=== PATIENT | female | born 1995 | race Caucasian/White ===

== ENCOUNTER 2021-10-28 06:57 | Outpatient (CLI) | payer BC, SELFPAY ==
--- NOTE | 2021-10-28 07:15 | CRLHL7_ITS ---
For Patients: As a result of the Century Cures Act, medical imaging exams and procedure reports are released immediately into your electronic medical record. You may view this report before your referring provider. If you have questions, please contact your health care provider. INDICATION: Chronic hypertension TECHNIQUE: Real time eldridge scale imaging of the fetus was performed. COMPARISON: 08/05/2021 FINDINGS: Sonographic imaging demonstrates a single living intrauterine gestation. Fetus demonstrates a regular cardiac rate of 159 beats per minute. Fetus has a vertex position. The placenta lies anteriorly. Amniotic fluid volume appears normal and there is a single deepest pocket of 4.1 cm. The estimated weight is 1764gm which lies at the 29th %. On the prior OB ultrasound dated 08/05/2021 the estimated weight was at the 86th percentile. BPD 52nd percentile. HC 48th percentile. Abdominal circumference 39th percentile. FL 15th percent. The fetus was active and demonstrated normal breathing movements. There was normal flexion and extension of the trunk and extremities. IMPRESSION: Normal biophysical profile score 8/8. Sonographic gestational age 31 weeks 6 days and sonographic due date 12/24/2021. Good correlation with dates. Normal interval growth. Estimated weight 29th percentile. Abdominal circumference 39th percentile. Dictated by Miguel Ángel Dockery MD @ 10/28/2021 8:50:49 AM (Electronically Signed)
== END 2021-10-28 06:58 | disposition home or self-care (01) ==
LOC: US 06:58
PROVIDERS: PCP Family Medicine; Visit Provider Physician Assistant
DX: O10.913 Unspecified pre-existing hypertension complicating pregnancy, third trimester (principal); Z3A.31 31 weeks gestation of pregnancy
CPT/HCPCS: 76816; 76819

== ENCOUNTER 2021-11-27 13:45 | Outpatient (CLI) | payer BC, SELFPAY ==
--- NOTE | 2021-11-27 14:00 | CRLHL7_ITS ---
For Patients: As a result of the Century Cures Act, medical imaging exams and procedure reports are released immediately into your electronic medical record. You may view this report before your referring provider. If you have questions, please contact your health care provider. INDICATION: chronic hypertension TECHNIQUE: Real time eldridge scale imaging of the fetus was performed. COMPARISON: 10/28/2021, 08/05/2021 FINDINGS: Sonographic imaging demonstrates a single living intrauterine gestation. Fetus demonstrates a regular cardiac rate of 155 beats per minute. Fetus has a vertex position. The placenta lies fundal. Amniotic fluid volume appears normal and there is a single deepest pocket of 4.6 cm. The estimated weight is 3009gm which lies at the 71st %. On the prior OB ultrasound dated 08/05/2021 the estimated weight was at the 86th percentile. BPD 56th percentile. HC 33rd percentile. AC 95th percentile. FL 13th percentile. The fetus was active and demonstrated normal breathing movements. There was normal flexion and extension of the trunk and extremities. IMPRESSION: Normal biophysical profile score 8/8. Sonographic gestational age 36 weeks 2 days and sonographic due date of 12/23/2021. Good correlation of dates. Normal interval growth. Estimated weight 71st percentile. Abdominal circumference 95th percentile. Dictated by Miguel Ángel Dockery MD @ 11/27/2021 3:08:01 PM (Electronically Signed)
== END 2021-11-27 13:46 | disposition home or self-care (01) ==
LOC: US 13:45
PROVIDERS: PCP Family Medicine; Visit Provider Physician Assistant
DX: O10.913 Unspecified pre-existing hypertension complicating pregnancy, third trimester (principal); Z3A.36 36 weeks gestation of pregnancy
CPT/HCPCS: 76816; 76819

== ENCOUNTER 2021-11-27 14:36 | Outpatient (CLI) | payer BC, SELFPAY ==
[2021-11-27 15:26] LABS: Alanine Aminotransferase* 26 U/L (4-35); Aspartate Amino Transferase* 25 U/L (12-35); Blood Urea Nitrogen* 5 mg/dL (5-24); Creatinine* 0.5 mg/dL (0.5-1.5); Estimated Glomerular Filt Rate 133 ml/min
[2021-11-27 17:48] LABS: Total Protein Urine 9 mg/dL
[2021-11-27 17:49] LABS: Creatinine Urine 61.1 mg/dL
[2021-11-28 14:25] LABS: Strep B DNA Probe NEGATIVE (Negative)
== END 2021-11-27 14:37 | disposition home or self-care (01) ==
PROVIDERS: PCP Family Medicine; Visit Provider Obstetrics & Gynecology
DX: O10.913 Unspecified pre-existing hypertension complicating pregnancy, third trimester (principal); Z3A.36 36 weeks gestation of pregnancy
CPT/HCPCS: 76816; 76819; 82565; 82570; 84156; 84450; 84460; 84520; 87081; 87653

== ENCOUNTER 2021-12-17 15:49 | Inpatient (IN) | payer BC, SELFPAY ==
[2021-12-17 16:07] VITALS: BP 136/92; PULSE 97
[2021-12-17 16:11] VITALS: BMI 44.6
[2021-12-17 16:34] VITALS: PULSE 98; O2SAT 100
[2021-12-17 16:42] LABS: Basophils Absolute Auto 0.02 K/uL (0.00-0.30); Basophils Percent Auto 0.2 % (0.0-3.0); Eosinophils Absolute Auto 0.14 K/uL (0.00-0.50); Eosinophils Percent Auto 1.6 % (0.0-7.0); Hematocrit 38.9 % (33.0-51.0); Hemoglobin* 12.9 gm/dL (12.0-16.0); Immature Granulocytes Abs Auto 0.03 K/uL (0.00-0.30); Lymphocytes Absolute Auto 1.89 K/uL (0.90-2.90); Lymphocytes Percent Auto 21.7 % (20-44); Mean Corpuscular HGB Conc 33 gm/dL (32-36); Mean Corpuscular Hemoglobin 28 pg (26-34); Mean Corpuscular Volume 84 fL (80-100); Monocytes Percent Auto 9.4 % (0.0-11.0); Neutrophils Absolute Auto 5.82 K/uL (1.7-7.0); Neutrophils Percent Auto 66.8 % (42.0-72.0); Platelet Count* 375 K/uL (140-440); RDW Coefficient of Variation % 13.4 % (11.5-15.5); Red Blood Count 4.65 m/uL (4.00-5.20); White Blood Count* 8.72 K/uL (4.50-11.00)
[2021-12-17] MEDS: miSOPROStoL 25 MCG/0.25 TABLET VAGINAL ×2 (17:00→20:55)
--- NOTE | 2021-12-17 17:01 | P.LDBA_ITS ---
Subjective History of Present Illness Date Seen: 12/17/21 Narrative: Patient is being admitted to Labor and Delivery for IOL for chronic HTN. She is a 26 year old at weeks gestation. Her full history and physical was dictated by Dr. Nuno on 11/27/2021. Please see this for details. H&P done on 11/27/[address] Nuno Specific Issues/Plans Blood type:?A positive Spouse: Jayjay. Baby: Girl. 1.? Obesity, BMI 44.4 at 1st OB Hemoglobin A1c:5.3 Normal 1 hr GTT @ 20 weeks on 08/05/2021: 116 1 hr GTT @ 28wks:? 134 Anesthesia referral: done Nutrition referral:? Placed on 07/10/2021? Level 2 ultrasound and consult with MFM 08/05/2021:? Normal ? note sent to outsole scheduler on 10/02/21 to arrange growth ultrasound with BPP at 32 and 36 weeks and Weekly NSTs 33, 34 and 35 weeks Weekly BPP or NST starting at 32 weeks: Growth ultrasound 32 weeks: EFW 86%, SDP 4.1 cm Growth ultrasound 36 weeks: EFW 3009g (71%), BPD 56%, HC 33%, AC 95%, FL 13%, SDP 4.6 cm 2.? 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 Beau Da Silva, had follow-up appointment 05/14/2021 (note is scanned in the chart) Plan for follow-up in 4-6 months and then 1 month Currently on mesalamine 10/02/2021:? Episodes of bloody diarrhea, seen thereafter by GI 3.? Chronic hypertension.? Diagnosed at 16 week visit. --Started on labetalol 100 mg twice daily --Baby ASA daily until 36 weeks.? Stopped 12/01/21. --Preeclampsia labs ordered: labs normal (BUN 9, Creat 0.9, AST 19, ALT 14)? 24 hour urine: Total protein in 24 hr = 260* Delivery between 37.0 - 39.6 if BP controlled w/ medication, per ACOG Cervical ripening 12/17/21, IOL 12/18/21 = 39 0/7 weeks. 4.? Flu shot:? 05/19/2021 COVID vaccinated, Moderna.? Due for booster:? Tdap:? 32 weeks.? 5.? Covid positive 11/16/21, symptomatic on 11/15/21. Quarantine for 10 days after onset of symptoms.? No lingering symptoms. OB - H&P: Exam Physical Exam: Vital signs: Pulse BP Pulse Ox 97 136/92 H 100 12/17/21 16:07 12/17/21 16:07 12/17/21 16:34 Constitutional: Constitutional: no acute distress Routine HEENT Exam: Head: Present normal inspection Eye: Present normal appearance Routine Neck Exam: Neck: Present full ROM Routine Respiratory Exam: Respiratory: Present CTA bilaterally Routine Cardiovascular Exam: Cardiovascular: RRR Routine Exam: Perineum Description: Normal Detailed Labor and Delivery Exam: Patient Gravid: yes Dilation (cm): 1 Effacement (%): 0 Cervix position: posterior (slightly off to the patinets left) Consistency: firm Contraction frequency (min): 0 (uterine irritability present. pt feeling only occasional cramping.) Tachysystole: No Contraction intensity: Mild Fetus (Single): Station: -3 Heart Rate Baseline: 145 Monitor Accelerations: Present Monitor Decelerations: None Longterm Variability: Moderate (11-25) (6-25) Routine Extremities Exam: Extremities: Present full ROM Routine Back/Spine/Pelvis Exam: Back/Spine: full ROM Routine Neurological Exam: Present alert and oriented X3 Routine Psychiatric Exam: Present normal affect and normal thought process OB - Problem Based A/P Additional Plan (1) Chronic hypertension affecting : Status: Acute (2) : Status: Acute Plan ASSESSMENT:? at 38.6 weeks gestation? GBS negative? complicated by chronic HTN. Well controlled with Labetalol and on 81mg ASA. Obesity with BMI 44.4 at [facility]. 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 History of covid 11/15/2021 without lingering symptoms. ? BP normal on admit? IOL for chronic HTN? ?? PLAN:? 1. Reviewed risks and benefits of IOL with Pitocin vs Cytotec vs cook catheter balloon. I do not feel that her cervix is favorable enough to allow a cook catheter placement. Pt prefers vaginal Cytotec. Plan to start IV Pitocin tomorrow after Cytotec doses if needed.?? 2. Candidate for analgesia of choice. Planning unmedicated .? 3. Monitor blood pressures. Consider labs if elevated.? 4. Anticipate ? 5. IV access in place at this time.? 6. Intermittent monitoring per unit Cytotec policy at this time as long s blood pressures remain in the normal range and there is a reassuring tracing.? Delivery/Labor/Induction Plan Plan: induction Induction method: per misoprostol protocol
[2021-12-17 17:22] LABS: SARS Antigen* negative (Negative)
[2021-12-17 17:59] VITALS: BP 133/83; PULSE 88
[2021-12-17 18:44] LABS: Slide Review Reflex No
[2021-12-17 20:49] VITALS: BP 146/84; PULSE 87; RESP 16; TEMP 37.1
[2021-12-17 22:15] VITALS: BP 127/81; PULSE 80
[2021-12-18] VITALS (78 sets, daily range): BP systolic 96–165; BP diastolic 52–89; PULSE 72–102; RESP 16–20; TEMP 36.3–37.1; O2SAT 96–100
[2021-12-18] MEDS: miSOPROStoL 25 MCG/0.25 TABLET VAGINAL (00:58)
[2021-12-18 05:15] LABS: Amnisure Rom* POSITIVE
[2021-12-18] MEDS: LACTATED RINGERS 1000 ML 1,000 ML IV (05:34)
[2021-12-18] MEDS: OXYTOCIN 30 unit/500 ML in NS 30 UNIT/500 ML BAG IVPB (07:00)
--- NOTE | 2021-12-18 07:25 | PM.OBPNL ---
Pain Control Time Seen by Provider: 07:25 Date Seen: 12/18/21 Comments: Subjective: Princess is comfortable with contractions. She states they have become mildly more intense since her water broke at 3:40 a.m. she has received 2 doses of vaginal Cytotec. Will be starting Pitocin per induction protocol. She was able to talk through all of her contractions well I was in the room. Vital signs: Per electronic medical record. EFM: Baseline 140s, pots accelerations, 1 spontaneous late-appearing deceleration at 7:25 a.m., moderate variability, reactive. Category to. [place]: Contractions every 3-4 minutes. SVE: 3 cm/70%/-1. Assessment: 26-year-old 1 para 0 at 39 weeks 0 days gestation induction of labor for chronic hypertension in Plan: 1. Start Pitocin per induction protocol.. 2. Continue labetalol 100 mg p.o. b.i.d. 3. Expect vaginal delivery. 4. Considering epidural and/or nitrous for analgesia during labor. Contractions Contraction frequency: 0 (uterine irritability present. pt feeling only occasional cramping.) Contraction intensity: Mild
[2021-12-18] MEDS: LABETALOL HCL 100 MG TABLET PO ×2 (08:27→20:56)
[2021-12-18] MEDS: LACTATED RINGERS 1000 ML 1,000 ML 125 ML IV (09:32)
[2021-12-18] MEDS: LIDOCAINE 2% (PF) 5 ML VIAL EPIDURAL (10:31)
[2021-12-18] MEDS: ROPIVACAINE 0.2% 100 ml 100 ML 12 MG EPIDURAL (10:35)
--- NOTE | 2021-12-18 10:46 | PM.ANBPRC ---
[facility] Medical History (Updated 11/30/21 @ 14:31 by Gemma Ward MD) Acne Class 1 obesity Ulcerative colitis Surgical History (Updated 11/30/21 @ 14:31 by Gemma Ward MD) H/O wisdom tooth extraction History of third molar tooth extraction Family History Father Alcoholism Maternal Grandfather Prostate cancer Mother Ulcerative colitis Social History (Updated 11/30/21 @ 14:32 by Gemma Ward MD) Narrative: Lives in [place] with . Works in [employer], [employer] Exercise involving walking (2/week, also 10,000 steps daily at work) Non-smoker Rarely consumes alcohol, none in No ilicit drug use Smoking Status: Never smoker Are you now , , , , never or living with a partner: Social isolation score (0-1 are the most socially isolated patients): 1 Meds Home Medications and Allergies Home Medications Medication Instructions Recorded Confirmed Type prenat.vits,scotty,zuz-ayin-ybdlc 1 tab PO QDAY 10/28/21 12/17/21 History mesalamine 1.2 gram tablet,delayed 4.8 g PO Q24H 12/18/21 12/18/21 History release Allergies Allergy/AdvReac Type Severity Reaction Status Date / Time No Known Allergies Allergy Verified 12/17/21 19:18 Results Labs Labs: Laboratory Results - last 24 hr 12/17/21 12/17/21 12/17/21 16:25 16:30 16:30 WBC 8.72 RBC 4.65 Hgb 12.9 Hct 38.9 MCV 84 MCH 28 MCHC 33 RDW Coeff of Mirna 13.4 Plt Count 375 Neut % (Auto) 66.8 Lymph % (Auto) 21.7 [place] % (Auto) 9.4 Eos % (Auto) 1.6 Baso % (Auto) 0.2 Neut # (Auto) 5.82 Lymph # (Auto) 1.89 [place] # (Auto) 0.80 Eos # (Auto) 0.14 Baso # (Auto) 0.02 Abs Immat Gran (auto) 0.03 Membrane Rupture SARS-CoV-2 (PCR) Cancelled SARS-CoV-2 Ag (Rapid) negative Blood Type A Positive Antibody Screen NEGATIVE 12/18/21 05:00 WBC RBC Hgb Hct MCV MCH MCHC RDW Coeff of Mirna Plt Count Neut % (Auto) Lymph % (Auto) [place] % (Auto) Eos % (Auto) Baso % (Auto) Neut # (Auto) Lymph # (Auto) [place] # (Auto) Eos # (Auto) Baso # (Auto) Abs Immat Gran (auto) Membrane Rupture POSITIVE SARS-CoV-2 (PCR) SARS-CoV-2 Ag (Rapid) Blood Type Antibody Screen Vital Signs Vital Signs: Last Vital Signs Temp 98.5 F 12/18/21 09:46 Pulse 81 12/18/21 10:45 Resp 20 12/18/21 09:46 BP 127/70 12/18/21 10:45 Pulse Ox 98 12/18/21 10:44 Weight: 129.501 kg Height: 170.18 cm Anesthesia Procedures Epidural Insertion Patient Location: OB Start Time: 10:16 Stop Time: 11:16 Start Date: 12/18/21 Stop Date: 12/18/21 Reason for Block: procedure for pain Patient Position: sitting Performed By: Leah Oliver Preanesthetic Checklist: IV checked, site marked, risks and benefits discussed, monitors and equipment checked, pre-op evaluation, timeout performed and anesthesia consent Prep: chlorhexidine gluconate Monitoring: blood pressure monitoring, continuous pulse oximetry and heart rate Approach: midline Vertebral Space: lumbar (1-5) Epidural Technique: STARLA saline Needle Type: Tuohy needle Injection Technique: continuous catheter Needle gauge: 18 Needle Length (cm): 10 cm Needle Insertion Depth (cm): 7 Catheter Type: multi-orifice Catheter at skin depth (cm): 14 Test Dose Result: negative and lidocaine 1.5% with epinephrine 1 to 200,000
[2021-12-18] MEDS: PHENYLEPHRINE 100 MCG/ML SYRINGE IVP (10:57)
--- NOTE | 2021-12-18 11:43 | PM.OBPNL ---
Pain Control Time Seen by Provider: 11:30 Date Seen: 12/18/21 Pain control: epidural Comments: Just received epidural. I was then called to the room for concern of decelerations. Contractions Monitor mode: External Contraction frequency: 1 (uterine irritability present. pt feeling only occasional cramping.) Contraction pattern: Regular Pelvic Exam Dilation (cm): 4 Effacement (%): 90 Station: -1 Fetus (Single) Amniotic Membrane Status: SROM status: Category ll Comments: Currently baseline 135 / accels present / no decels / moderate variability. At just before 1130, several [id number] decels with nathan in 90s, recovering to 120 for a few seconds between each of the three decels. Followed by one variable a few minutes later, and two possible late decelerations (contractions not tracking at that time) Assessment and Plan Comments: woman for IOL for gestational HTN. BP stable. Currently category I tracing, but previously category 2 Latent labor. Begin pitocin for augmentation. IUPC and scalp electrode placed with aseptic technique to aid in monitoring; maternal position changes make monitoring impossible. Continuous monitoring.
--- NOTE | 2021-12-18 17:03 | PM.OBPRCVD ---
Procedure Delivery date: 12/18/21 Procedure Done: [employer] Procedure Details: The patient is a 26 year-old G 1 P 0 woman admitted on 12/17/2021 at 38 Weeks, 6 Days gestation for cervical ripening in anticipation of induction of labor.? Cervical exam on admission was 1 cm, not effaced,-3 station, posterior and firm. heart rate tracing revealed baseline of 145, accelerations present, no decelerations, moderate variability, a category [1] tracing.? She received 3 doses of vaginal misoprostol for cervical ripening. She then had SROM at 3:40 a.m. on 12/18/2021 with clear fluid. ? Labor Analgesia:? Epidural ? Pitocin:? Yes ? Complete:? 4:07 PM ? Pushing:? 4:12 p.m. ? heart tones during second stage were notable for recurrent deep variable decelerations with pushing. ? At 4:33 p.m. a viable female delivered in vertex CYRIL presentation over small second-degree perineal laceration via vaginal delivery.? After delivery of infant had, I was unable to deliver the anterior shoulder with gentle guidance of the head downward. Shoulder dystocia was diagnosed. Maneuvers taken to resolve dystocia: Toro maneuver, unsuccessful Delivery of posterior shoulder, successful. I was able to hook my finger beneath the posterior arm and guide this downwards, after which time the anterior shoulder was guided beneath the maternal pubic bone. Time from delivery of head to shoulder was approximately 90 seconds. Infant was placed on maternal abdomen.? Cord was immediately clamped and cut and infant was passed to attending nurses for resuscitation.? Nose and mouth were bulb suctioned.? weight pending.? 2 at 1 minute and 9 at 5 minutes.? Nuchal cord: Yes, loose, x1. ? Placenta delivered spontaneously and complete at 4:52 p.m. with a 3 vessel cord. ? Mother and were stable after delivery. ? Lacerations:? Second-degree perineal laceration, repaired with 2-0 Vicryl in the usual fashion. ? Blood loss: 325 mL. Blood loss measurement type: QBL ? Sponge and needles counts are correct.
[2021-12-18] MEDS: ACETAMINOPHEN 500 MG TABLET 1000 MG PO (20:56)
[2021-12-19] VITALS (8 sets, daily range): BP systolic 109–126; BP diastolic 77–85; PULSE 82–102; RESP 14–16; TEMP 36.6–37; O2SAT 96–98
[2021-12-19] MEDS: ACETAMINOPHEN 500 MG TABLET 1000 MG PO ×4 (02:51→21:05)
[2021-12-19 06:56] LABS: Hematocrit 36.4 % (33.0-51.0); Mean Corpuscular HGB Conc 33 gm/dL (32-36); Mean Corpuscular Hemoglobin 28 pg (26-34); Mean Corpuscular Volume 85 fL (80-100); Platelet Count* 305 K/uL (140-440); Red Blood Count 4.28 m/uL (4.00-5.20); White Blood Count* 14.53 K/uL (4.50-11.00)
[2021-12-19 07:07] LABS: Slide Review Reflex No
[2021-12-19 07:15] LABS: Alanine Aminotransferase* 26 U/L (4-35); Aspartate Amino Transferase* 35 U/L (12-35); Blood Urea Nitrogen* 6 mg/dL (5-24); Creatinine* 0.6 mg/dL (0.5-1.5); Est. Creatinine Clearance* 138.17; Estimated Glomerular Filt Rate 127 ml/min
[2021-12-19] MEDS: DOCUSATE SODIUM 100 MG CAPSULE PO (09:04)
[2021-12-19] MEDS: LABETALOL HCL 100 MG TABLET PO ×2 (09:06→21:05)
--- NOTE | 2021-12-19 10:03 | PM.OBPNVD1 ---
OB - PN:Subj Subjective Date Seen: 12/19/21 Patient comments OB post-: perineal pain, tolerating diet and flatus present [place] status: Narrative: PPD1 doing well. Normal hemoglobin in am. OB - PN: Obj Exam Physical Exam: Vital signs: Temp Pulse Resp BP Pulse Ox O2 Del Method 98.3 F 85 16 126/85 96 12/19/21 09:05 12/19/21 08:57 12/19/21 08:57 12/19/21 08:57 12/19/21 08:57 12/19/21 08:57 Narrative: General: AAOX3 Chest: CTA x2, RRR Abd: Uterus well contracted, non tender Pelvic: Normal pp lochia OB - PN: Obj Data Labs Labs: Laboratory Results - last 24 hr 12/19/21 12/19/21 06:47 06:47 WBC 14.53 H RBC 4.28 Hgb 12.0 Hct 36.4 MCV 85 MCH 28 MCHC 33 Plt Count 305 BUN 6 Creatinine 0.6 Estimated Creat Clear 138.17 Estimated GFR 127 AST 35 ALT 26 OB - PN: A/P Vaginal Delivery Assessment and Plan (1) Chronic hypertension affecting : Status: Acute (2) : Status: Deleted Plan Doing well PPD1. CHTN, had some episodes of low blood pressures, she is on labetalol 100 mg BID, will continue to monitor to assess if we need to d/c medication. Otherwise continue routine cares. Plan day: 1 Plan: routine care Comments: POssible discharge home tomorrow
[2021-12-20] MEDS: ACETAMINOPHEN 500 MG TABLET 1000 MG PO ×2 (02:55→09:25)
[2021-12-20 03:01] VITALS: BP 112/80; PULSE 88; RESP 14; TEMP 36.7; O2SAT 96
[2021-12-20 08:23] VITALS: BP 116/83; PULSE 80; RESP 16; TEMP 37.1; O2SAT 98
[2021-12-20] MEDS: DOCUSATE SODIUM 100 MG CAPSULE PO ×2 (08:37→08:39)
[2021-12-20] MEDS: LABETALOL HCL 100 MG TABLET PO (08:39)
--- NOTE | 2021-12-20 11:11 | PM.OBDSVD1 ---
DS: Providers Provider Date Seen: 12/20/21 Date of admission: 12/17/21 15:49 Primary care physician: Bernard Ashton MD Admitting Clinician: Carol Cuellar MD Attending Physician on discharge: Carol Cuellar MD DS: Diagnosis Discharge Diagnosis (1) Shoulder dystocia during labor and delivery: Status: Acute (2) Vaginal delivery: Status: Acute (3) Ulcerative colitis: Status: Acute (4) Chronic hypertension affecting : Status: Acute Exam Narrative: Exam Narrative: General: Alert, active and oriented x3 Chest: Clear to auscultation bilaterally, regular rate rhythm of heart Abdomen: Uterus well contracted, nontender Pelvic: Normal lochia Const: Vital Signs, click to edit/add: Vital Signs - 24 hr 12/19/21 12:54 12/19/21 17:15 12/19/21 20:57 Temperature 97.9 F 98.6 F 97.9 F Pulse Rate [Blood Pressure Cuff] 84 98 102 H Respiratory Rate 16 16 16 Blood Pressure [Le ft Arm] 117/83 126/85 121/82 Pulse Oximetry 97 97 98 Oxygen Delivery Me thod Room Air Room Air Room Air 12/19/21 23:21 12/20/21 03:01 12/20/21 08:23 Temperature 97.8 F 98.0 F 98.7 F Pulse Rate [Blood Pressure Cuff] 86 88 80 Respiratory Rate 14 14 16 Blood Pressure [Le ft Arm] 109/77 112/80 116/83 Pulse Oximetry 97 96 98 Oxygen Delivery Me thod Room Air Room Air Room Air OB - DS: Summary Hospital Course Hospital Course: The patient is a 26 year old G 1 P 1001 at 38 6/7 weeks gestation that was admitted to the Center on 12/17/21 for induction of labor. She had an complicated (shoulder dystocia) vaginal delivery. She delivered a viable female . She is breast feeding. the patient has done well. Peripartum Data Infant delivery method: Vaginal Laceration description: Perineal - 2nd Degree Episiotomy description: None complications: none [place] Infant Gender: Female Infant Discharge Plan: Home Status at Discharge Functional status at discharge: independent ambulation Overall status at discharge: patient is progressing back to baseline Time Spent with Patient Time attestation: Total time spent providing and/or coordinating discharge services: Time spent: Less than 30 minutes Discharge Plan Discharge Disposition: Home, Self-Care Date of Admission: 12/17/21 15:49 Attending Provider on Discharge: Carline Ibarra Primary Care Provider: Bernard Ashton Condition: Improved Anticipated Discharge Date/Time: 12/20/21 17:16 Discharge Medications: New acetaminophen 500 mg Tablet 1,000 mg PO Q6H PRN (Reason: pain/fever) Qty: 0 0RF docusate sodium 100 mg Capsule 100 mg PO DAILY PRN (Reason: constipation) Qty: 0 0RF Lanolin (HPA) 100 % Cream 1 applic topical Q1H PRNQty: 0 0RF Continued prenat.vits,scotty,[id number]-[id number] Tablet 1 tab PO QDAY mesalamine 1.2 gram tablet,delayed release (DR/EC) 4.8 g PO Q24H Label Comments: TAKE FOUR TABLETS BY MOUTH EVERY DAY WITH A MEAL labetalol 100 mg tablet 100 mg PO BID Qty: 60 1RF Discharge Orders: Discharge Order (Routine); Ordered 12/20/21 Ordered By: Carline Ibarra Patient Education: OB Vaginal/Breast Feeding Activity Level: Activity as Tolerated Discharge Diet: Regular Follow Up Appointments: Bernard Ashton MD [Primary Care Provider] - Forms: [employer] Info Instructions
== END 2021-12-20 12:30 | disposition home or self-care (01) | DRG 560 ==
PROVIDERS: Advanced Practice Midwife; Obstetrics & Gynecology; Admitting Provider Obstetrics & Gynecology; PCP Family Medicine; Visit Provider Obstetrics & Gynecology
DX: O10.92 Unspecified pre-existing hypertension complicating childbirth (principal); O66.0 Obstructed labor due to shoulder dystocia; O76 Abnormality in fetal heart rate and rhythm complicating labor and delivery; O70.1 Second degree perineal laceration during delivery; O99.214 Obesity complicating childbirth; E66.9 Obesity, unspecified; Z3A.38 38 weeks gestation of pregnancy; Z37.0 Single live birth; Z86.16 Personal history of COVID-19
CPT/HCPCS: 01967; 36415; 51798; 59200; 82565; 84112; 84450; 84460; 84520; 85025; 85027; 86850; 86900; 86901; 87426; 87635; 88307; A9270; J2370; J2795; J7120

== ENCOUNTER 2021-12-25 12:51 | Outpatient (CLI) | payer BC, SELFPAY ==
--- NOTE | 2021-12-25 13:45 | W.PM.LAC.MC ---
Consult Note - Mom Date of Visit Date of visit: 12/25/21 surgical product sales consultant: Erika Holland Visit Code: Visit Patient's Information Phone number: [phone] : 1 Para: 1 Allergies No Known Allergies Allergy (Verified 12/17/21 19:18) Mother's Medical History: Medical History (Updated 12/19/21 @ 00:01 by ) Body mass index (BMI) of 40.0 to 44.9 in adult Class 1 obesity Ulcerative colitis GHTN Delivery Information Delivery type: Vaginal (IOL for HTN) Weeks Gestation: 39.0 Gestational Age: AGA Weight: 3.305 kg Discharge Weight: 3.226 kg Baby's Information Baby's Age at Visit: 7 days Baby's Provider or Clinic: Dr. Miller Jaundice: Yes (per mom TSB = 11.0 on 12/24/21) Reason for Consult Reason for Consult: concern for milk supply Past Experience Past Experience: No Current Frequency of Day Feedings: every two hours arund the clock Both Breasts: Yes Suck: not very aggressive Latch: wide Length of Time: 15 - 30 minutes Pumping Pumping: Yes (has only pumped one day d/t lack of time) Quantity Pumped: 15 ml total each time Supplementing EMB Supplement: Yes (baby is given 15 ml EBM/formula after feedings when she seems unsatisfied) Formula Supplement: Yes Baby Elimination Number of Wet Diapers a Day: almost every feeding Number of BM a Day: 2 - 4/day; turning yellow and seedy Breast/Nipple Condition Breast Information: WNL Engorgement: No Maternal Nipple Condition - Left: Common Nipple Maternal Nipple Condition - Right: Common Nipple Sore Nipples: No Onsite Pre-Feed weight: 3.146 kg Post-Feed weight: 3.16 kg Milk Transferred (mL): 14 Pre-Nursing Left Nipple: Within Normal Limits Pre-Nursing Right Nipple: Within Normal Limits Post-Nursing Left Nipple: Within Normal Limits Post-Nursing Right Nipple: Within Normal Limits Assessments/Interventions Assessments/Interventions: Met with mom and baby for consult.? Mom is concerned about her supply stating she felt like she had a good supply and baby was nursing well for about the first four days, but that her supply tanked with the stress of baby's elevated bilirubin and need for PTX from 12/22 - 12/24.? She reports she is attempting to wake baby and nurse her every 2 hours but baby is very sleepy and not aggressive at the breast.? She's only pumped one day consistently d/t the lack of time with the frequent feedings and on that day she got about .5 oz total each pumping session.? Baby has been getting about .5 oz EBM or fomula for the past several days after nursing if she still seems hungry.? Breasts WNL- symmetrical with rounded lower quadrants, intramammary distance is < 1.5 inches.? Nipples are everted and don't flatten or retract on compression; no damage noted.? Mom reports changes in her breasts during and states her milk came in on 12/21. Baby hasn't gained or lost weight since her visit on 12/24 and is 5% below BW at 7 DOL.? She is jaundiced to her abdomen, the rebound TSB was 11.7 on 12/24/21.? Mom reports baby had facial bruising and mild shoulder dystocia at delivery.? She believes baby has equal ROM when turning her head and moving her extremities.? Baby's upper frenulum is a little thick but the upper lip is fairly easy to flange.? She has a somewhat high palate; she's not very aggressive when sucking on a finger.? Her tongue is rounded when she lifts it, it extends past the gum line, and has good lateral movement.? Her lower frenulum is WNL. Mom attempted to latch baby to the left side and baby seemed to be having a hard time sensing the breast was in her mouth.? With verbal coaching to move mom's fingers further from the areola and exaggerate pointing her nipple to baby's nose, baby latched deeply and mom was comfortable.? Baby was very sleepy and needed almost constant stimulation to stay awake and she wasn't doing much nutritive suckling.? She was switched back and forth about every five minutes for a total of 30 minutes and never really woke up to nutritively breastfeed.? She transferred 14 ml. We reviewed mom's [employer] pump and it was suggested she order the 20 mm flanges. Plan: 1. Continue to nurse baby offering both sides, but ok to stretch the time between feedings to every 2 - 3 hours as she may be a little more awake and nurse more aggressively.? Suggested using the tips above to help her latch and keep the nursing sessions to no more than 30 minutes total for now. 2. Pump for 15 - 20 minutes after as many nursing sessions as possible.? Stressed that this is important to bring back her supply since baby isn't really stimulating her.? As baby wakes up and gets more aggressive at the breast pumping sessions can be reduced. 3. Supplement baby with .5 - 1 oz (or more depending on baby's cues) EBM or formula after every daytime feeding.? OK to try just nursing at night, but obviously supplement her after any feeding if she still seems hungry.? 4. F/U in the Center on 12/27/21 for a weight check and for her 2 week WCC on 01/01.? I will f/u by phone on 12/30. BW = 3305 g 12/22 = 3090 g 12/24 = 3147 g today = 3146 g Meds Home Medications and Allergies Home Medications Medication Instructions Recorded Confirmed Type prenat.vits,scotty,xpo-qzzn-jdemv 1 tab PO QDAY 10/28/21 12/17/21 History mesalamine 1.2 gram tablet,delayed 4.8 g PO Q24H 12/18/21 12/18/21 History release Allergies Allergy/AdvReac Type Severity Reaction Status Date / Time No Known Allergies Allergy Verified 12/17/21 19:18
== END 2021-12-25 12:52 | disposition home or self-care (01) ==
LOC: OB LAC 12:52
PROVIDERS: PCP Family Medicine; Visit Provider Obstetrics & Gynecology
DX: Z39.1 Encounter for care and examination of lactating mother (principal)
CPT/HCPCS: 99211

== ENCOUNTER 2023-02-02 10:43 | Outpatient (CLI) | payer BC, SELFPAY ==
[2023-02-02 14:27] LABS: Chlamydia DNA Amplified* NOT DETECTED (No Detected); GC DNA Amplified* NOT DETECTED (No Detected)
== END 2023-02-02 10:44 | disposition home or self-care (01) ==
LOC: NFLDREF 10:44
PROVIDERS: PCP Family Medicine; Visit Provider Registered Nurse
DX: R10.2 Pelvic and perineal pain (principal)
CPT/HCPCS: 87491; 87591

== ENCOUNTER 2023-02-09 15:45 | Outpatient (CLI) | payer BC, SELFPAY ==
--- NOTE | 2023-02-09 16:00 | CRLHL7_ITS ---
For Patients: As a result of the Century Cures Act, medical imaging exams and procedure reports are released immediately into your electronic medical record. You may view this report before your referring provider. If you have questions, please contact your health care provider. CLINICAL HISTORY: Pelvic peroneal pain TECHNIQUE: Real time, eldridge scale images were acquired of the pelvis using a transabdominal and transvaginal approach. Color Doppler analysis was performed of the ovaries. FINDINGS: The uterus measures 9 x 3.4 x 4.3 centimeters. Endometrium is poorly visualized. IUD in the endometrial cavity centrally located. Right ovary measures 3.4 x 1.7 x 2 centimeters and is unremarkable normal blood flow on color Doppler. Left ovary measures 4.1 x 2.4 x 2.6 centimeters complex left ovarian cyst measuring 2.4 x 1.6 by 2.4 centimeters. Normal blood flow to left ovary. IMPRESSION: 1. IUD in the endometrial cavity centrally located likely in correct position however images provided are suboptimal to assess location. 2. Complex left ovarian cyst measuring 2.4 x 1.6 x 2.4 centimeters. This could be followed up in 8-12 weeks. Normal blood flow to both ovaries. Dictated by Dinorah Purdy MD @ 02/12/2023 12:07:20 PM (Electronically Signed)
== END 2023-02-09 15:46 | disposition home or self-care (01) ==
LOC: US 15:45
PROVIDERS: PCP Family Medicine; Visit Provider Registered Nurse
DX: R10.2 Pelvic and perineal pain (principal); N83.202 Unspecified ovarian cyst, left side
CPT/HCPCS: 76830; 76856; 93976

== ENCOUNTER 2023-04-14 17:42 | Outpatient (REF) | payer BC, SELFPAY ==
--- OUTSIDE RECORDS SUMMARY | 2023-04-14 17:46 | XMS_ITS | Continuity of Care Document ---
Author Name Unknown Organization [facility] Address [address] [address] [place] [address] Phone Care Team Providers Care Mangle Feeder Name Role Phone Link Beau BRUNNER Unavailable Unavailable Allergies, Adverse Reactions, Alerts Substance Reaction Status Criticality No Known Allergies Active No Inform ation Medications Medication Instructions Dosage Effective Dates (start - stop) Status Comments mesalamine 1.2 gram tablet,delayed release take 2 Tablet by oral route every day with a meal 2.4 G - Active pt needs labs and a OV for further refills. labetalol 100 mg tablet take 2 tablet by oral route 2 times every day 200 MG - Active MESALAMINE DR (unknown strength) take 2 capsule by oral route 3 times every day Not Available - Active VITAMINS (unknown strength) take 1 tablet by oral route every day Not Available - Active drospirenone 3 mg-ethinyl estradiol 0.02 mg tablet take 1 tablet by oral route every day 1.00 tablet - Active Procedures Procedure Date Established Level 3 Offic/outpt E&m Estab Low-mod 2 Established Level 3 Established Level 3 Offic/outpt E&m New Mod-hi Advance Directives Directive Yes / No Effective Date File Name No Information Encounters Encounter Description Practice Location Reason(s) For Visit Diagnoses Date Provider Providers Copied on Encounter [facility], [address] [address], [place], [id number], [place] tel:[phone] [facility] No Information 3 Link MD Yanez. [address] [facility], [address], [id number], [place]. tel:[phone] Referring [place]: [place], [address] [place] [address] [address], [place], [address] . tel:[phone] [facility], [address] [address], [place], [id number], [place] tel:[phone] [facility] No Information 3 Link MD Yanez. [address] [place] [address], [id number], [place]. tel:[phone] Established Level 3 [facility], [address] [address], [place], [id number], [place] tel:[phone] [facility] GI Symptoms or Concerns (chief complaint) Ulcerative rectosigmoiditis without complication 2 Link MD Yanez. [address] [facility], [address], [id number], [place]. tel:[phone] Referring Provider: Referral Self, USE FOR SELF REFERRALS. [facility], [address] [address], [place], [id number], [place] tel:[phone] [facility] No Information 2 Link MD Yanez. [address] [facility], [facility] [address], [place], [id number], [place]. tel:[phone] Offic/outpt E&m Estab Low-mod [facility], [address] [address], [place], [id number], [place] tel:[phone] [facility] GI Symptoms or Concerns (chief complaint) Ulcerative rectosigmoiditis with rectal bleeding 2 Link MD Yanez. [address] [place] [address], [address], [id number], [place]. tel:[phone] Referring Provider: Referral Self, USE FOR SELF REFERRALS. [facility], [address] [address], [place], [id number], [place] tel:[phone] [facility] No Information 2 Aquiles Toribio. [address] [facility], [address], [id number], [place]. tel:[phone] Established Level 3 [facility], [address] [address], [place], [id number], [place] tel:[phone] [facility] GI Symptoms or Concerns (chief complaint) Ulcerative rectosigmoiditis without complication 2 Link MD Yanez. [address] [place] [address], [id number], [place]. tel:[phone] Referring Provider: Referral Self, USE FOR SELF REFERRALS. [facility], [address] [address], [place], [place], [id number], [place] tel:[phone] [facility] No Information 2 Link MD Yanez. [address] [place] [address], [address], [id number], [place]. tel:[phone] Established Level 3 [facility], [address] [address], [place], [id number], [place] tel:[phone] [facility] GI Symptoms or Concerns (chief complaint) Ulcerative rectosigmoiditis without complication 1 Link MD Yanez. [address] [place] [address], [address], [id number], [place]. tel:[phone] Referring Provider: Referral Self, USE FOR SELF REFERRALS. [facility], [address] [address], [place], [id number], [place] tel:[phone] [facility] No Information 1 Link MD Yanez. [address] [facility], [address], [id number], [place]. tel:[phone] Offic/outpt E&m New Mod-hi [facility], [address] [address], [place], [place], [id number], tel:[phone] [facility] GI Symptoms or Concerns (chief complaint) Ulcerative rectosigmoiditis with rectal bleeding Link MD Yanez. [address] [facility], [address], [place], [place], [id number], [place]. tel:[phone] Referring Provider: Referral Self, USE FOR SELF REFERRALS. [facility], [address] [address], [place], [id number], tel:[phone] No Information No Information Referring Provider: Clover Ag MD, [address] [place], [address]. tel:[phone] Family History Family Member Type Diagnosis Age At Onset Mother Problem (finding) ulcerative colitis Immunizations Vaccine Date Status Comments Afluria Qd administered Note: [facility] bi-directional interface ; Source: Other Registry tetanus toxoid, reduced diphtheria toxoid, and acellular pertussis vaccine, adsorbed administered Note: [facility] b i-directional interface ; Source: Other Registry SARS-COV-2 (COVID-19) vaccin e, mRNA, spike protein, LNP, preservative free, 100 mcg/0.5mL dose or 50 mcg/0.25mL dose administered Note: [facility] bi -directional interface ; Source: Other Registry SARS-COV-2 (COVID-19) vaccin e, mRNA, spike protein, LNP, preservative free, 100 mcg or 50 mcg dose administered Note: [facility] bi-direct ional interface ; Source: Other Registry SARS-COV-2 (COVID-19) vaccin e, mRNA, spike protein, LNP, preservative free, 100 mcg/0.5mL dose or 50 mcg/0.25mL dose administered Note: [facility] bi -directional interface ; Source: Other Registry SARS-COV-2 (COVID-19) vaccin e, mRNA, spike protein, LNP, preservative free, 100 mcg or 50 mcg dose administered Note: [facility] bi-direct ional interface ; Source: Other Registry SARS-COV-2 (COVID-19) vaccin e, mRNA, spike protein, LNP, preservative free, 100 mcg/0.5mL dose administered Note: [facility] bi-direct ional interface ; Source: Other Registry Influenza administered Note: [facility] bi-d irectional interface ; Source: Other Registry Influenza administered Note: [facility] bi-d irectional interface ; Source: Other Registry tetanus toxoid, reduced diphtheria toxoid, and acellular pertussis vaccine, adsorbed administered Note: [facility] b i-directional interface ; Source: Other Registry hepatitis A vaccine, pediatric/adolescent dosage, 3 dose schedule administered Note: [facility] bi-direct ional interface ; Source: Other Registry human papilloma virus vaccin e, quadrivalent administered Note: [facility] bi-direct ional interface ; Source: Other Registry human papilloma virus vaccin e, quadrivalent administered Note: [facility] bi-direct ional interface ; Source: Other Registry human papilloma virus vaccin e, quadrivalent administered Note: [facility] bi-direct ional interface ; Source: Other Registry Novel [id number], injectable administered Note: [facility] bi-direct ional interface ; Source: Other Registry measles, mumps and rubella v irus vaccine administered Note: [facility] bi-direct ional interface ; Source: Other Registry tetanus toxoid, reduced diphtheria toxoid, and acellular pertussis vaccine, adsorbed administered Note: [facility] b i-directional interface ; Source: Other Registry meningococcal polysaccharide (groups A, C, Y and W-135) diphtheria toxoid conjugate vaccine (MCV4P) administered Note: [facility] bi-direct ional interface ; Source: Other Registry Payers Payer name Insurance type Covered constitution party ID Authoriza tion(s) No Information Social History Type Description Quantity Date Captured Comments Alcohol Use Details Unknown Caffeine Use Details Unknown Tobacco Use Status No Information Smoking Status No Information Sex Female Chief Complaint And Reason For Visit No Information Reason For Referral Reason For Referral No Information Plan Of Treatment Date Type Action Status Referral Ordered: follow-up visit with Beau Da Silva MD 5 Months Appointment date/timeframe: 5 Months ordered Referral Ordered: follow-up visit with Beau Da Silva MD 6 Months Appointment date/timeframe: 6 Months ordered Appointment Princess Inman BOOKED History Of Present Illness Encounter Date Complaint History Of Prese nt Illness GI Symptoms or Concerns I had a followup visit with Princess today. She was last seen by myself at the end of September. Since then, she has continued to do very well on mesalamine 4.8 g per day. She did deliver a healthy baby girl at the end of November. She states she had no problems around the time of delivery or since then. She continues to have regular soft, formed bowel movements without diarrhea, urgency, abdominal pain, or blood in her stools. Overall, she is very pleased with her control. GI Symptoms or Concerns Princess Inman is a 26 year old female with ulcerative colitis who I am seeing in follow-up today. 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 She has been maintained on Lialda 4.8g per day. She is currently 31 weeks , due December 25. Her has gone quite well until 2-3 weeks ago when she began having diarrhea. At that time was having up to 5 loose BMs per day with blood in her stool. Over the past few days her symptoms have improved. She is now having 2 BMs that are soft and formed, but has continues to notice some blood in her stool, although this is decreasing in amount. She denies any urgency or abdominal pain. Continues to have a good appetite. Denies fevers/chills. She has had regular blood work done through her OB, will request those records. Does not use NSAIDs. GI Symptoms or Concerns I had a followup visit with Princess today. She was diagnosed with ulcerative rectosigmoiditis in 2020. She is currently on mesalamine 4.8 g per day.She denies any symptoms that she attributes to her colitis. Specifically, she denies any diarrhea, urgency, blood in her stools, or abdominal pain. She is 9 weeks , and is due on December 17.She has continued to take her mesalamine and denies any side effects from this medication. GI Symptoms or Concerns I had a followup visit with Princess today. She was diagnosed with ulcerative rectosigmoiditis in May of this year. She saw me in June, and at that time, we started mesalamine 4.8 g per day. She presents today for followup.She states she is doing great, and she denies any symptoms from her ulcerative colitis. She states she has 1 to 2 formed bowel movements per day without urgency, blood, or abdominal pain. She denies any diarrhea or constipation. She denies any nausea, vomiting, decreased appetite, or weight loss. She denies any side effects from the mesalamine. GI Symptoms or Concerns Princess presents today for management of recently diagnosed ulcerative proctosigmoiditis.At the end of March, she began to experience abdominal pain, which she describes as lower abdominal cramps. She also had diarrhea, which she describes as 3 to 5 urgent loose bowel movements in a day. She noted red blood in her stool with most bowel movements. She denies any nausea, vomiting, heartburn, acid reflux, decreased appetite, fevers, or weight loss.On June 06, she had a normal CBC and comprehensive chemistry. TSH was low with a normal free T4. Her CRP was mildly elevated at 1.4. On June 17, she underwent a colonoscopy which showed inflamed, granular mucosa in the distal 20 cm of the colon. Biopsies showed mildly active chronic proctitis consistent with inflammatory bowel disease. Functional Status Date Functional Assessmen t No Information Instructions Date Instruction Additional Infor nori 1. Mesalamine 1.2 g tablets, 4 tablets per day.2. Follow up with me in clinic in 6 weeks. I did ask her to contact my office immediately if she has any worsening of symptoms.Thank you for allowing me to participate in the care of this patient. Please feel free to contact me should any questions arise. Related to Ulcerative rectosigmoiditis with rectal bleeding IBD Folder Related to Ulcer ative rectosigmoiditis with rectal bleeding Assessments Type Assessment Date No Information Patient Care Teams Name Effective Dates (start - stop) Status Members No Information
[2023-04-14 18:59] LABS: Blood Urea Nitrogen* 10 mg/dL (5-24); Creatinine* 0.6 mg/dL (0.5-1.5); Estimated Glomerular Filt Rate 126 ml/min
== END 2023-04-14 17:43 | disposition home or self-care (01) ==
LOC: NFLDREF 17:42
PROVIDERS: PCP Family Medicine; Visit Provider Internal Medicine Gastroenterology
DX: K51.30 Ulcerative (chronic) rectosigmoiditis without complications (principal)
CPT/HCPCS: 82565; 84520

== ENCOUNTER 2024-08-02 09:22 | Outpatient (CLI) | payer BC, SELFPAY | END 2024-08-02 09:23 | disposition home or self-care (01) | PROVIDERS: PCP Family Medicine; Visit Provider Registered Nurse | DX: I10 Essential (primary) hypertension (principal); Z13.6 Encounter for screening for cardiovascular disorders; Z13.29 Encounter for screening for other suspected endocrine disorder | CPT/HCPCS: 80053; 80061; 84443 ==

== ENCOUNTER 2024-12-10 15:32 | Outpatient (CLI) | payer BC, SELFPAY ==
--- NOTE | 2024-12-10 15:45 | CRLHL7_ITS ---
For Patients: As a result of the Century Cures Act, medical imaging exams and procedure reports are released immediately into your electronic medical record. You may view this report before your referring provider. If you have questions, please contact your health care provider. OB ULTRASOUND FIRST TRIMESTER TRANSVAGINAL INDICATION: Dating and viability. TECHNIQUE: Real time eldridge scale, color and M-mode Doppler imaging of the fetus was performed. Transvaginal imaging performed. LMP: 10/11/2024. FRANCHESCA by LMP: 07/18/2025. GA: 8 w, 4 d. Previous US: No. CRL: 2.1 cm. 8 w 5 d. FRANCHESCA: 07/17/2025. FHR: 176 BPM. Gestational sac: 4.0 cm. Appears within normal limits. Yolk sac: 4.1 mm. Appears within normal limits. Right ovary: Within normal limits. 1.5 x 2.5 x 1.3 cm. Left ovary: Within normal limits. 5.0 x 3.5 x 3.6 cm. IMPRESSION: 1. Single viable intrauterine . 2. 8 week 5 day gestation by ultrasound measurements. 3. Small subchorionic hemorrhage measuring 1.6 x 2.1 x 2.1 cm. Cesar Rubi M.D. Body/Diagnostic Radiologist [email or web address] SP/Dictated by: Cesar Rubi MD @ 12/12/2024 12:32:00 PM (Electronically Signed)
== END 2024-12-10 15:33 | disposition home or self-care (01) ==
LOC: US 15:33
PROVIDERS: Visit Provider Physician Assistant
DX: Z34.91 Encounter for supervision of normal pregnancy, unspecified, first trimester (principal); O20.9 Hemorrhage in early pregnancy, unspecified; Z3A.08 8 weeks gestation of pregnancy; O10.911 Unspecified pre-existing hypertension complicating pregnancy, first trimester
CPT/HCPCS: 76817

== ENCOUNTER 2024-12-10 16:40 | Outpatient (CLI) | payer BC, SELFPAY ==
[2024-12-10 21:07] LABS: Chlamydia DNA Amplified* NOT DETECTED (No Detected); GC DNA Amplified* NOT DETECTED (No Detected)
== END 2024-12-10 16:41 | disposition home or self-care (01) ==
PROVIDERS: Visit Provider Physician Assistant
DX: O10.911 Unspecified pre-existing hypertension complicating pregnancy, first trimester (principal); Z3A.08 8 weeks gestation of pregnancy
CPT/HCPCS: 82565; 82570; 83020; 83021; 84156; 84450; 84460; 84520; 85660; 86592; 86703; 86704; 86706; 86762; 86787; 86803; 86850; 87086; 87340; 87491; 87591

== ENCOUNTER 2025-01-04 06:00 | Outpatient (CLI) | payer BC, SELFPAY | END 2025-01-04 06:01 | disposition home or self-care (01) | LOC: NFLDREF 01-08 08:35 | PROVIDERS: Visit Provider Physician Assistant | DX: O99.211 Obesity complicating pregnancy, first trimester (principal); Z68.41 Body mass index [BMI] 40.0-44.9, adult; Z3A.12 12 weeks gestation of pregnancy | CPT/HCPCS: 82570; 84156 ==

== ENCOUNTER 2025-02-27 13:31 | Outpatient (CLI) | payer BC, SELFPAY | END 2025-02-27 13:32 | disposition home or self-care (01) | LOC: US 13:31 | PROVIDERS: Visit Provider Obstetrics & Gynecology | DX: O10.912 Unspecified pre-existing hypertension complicating pregnancy, second trimester (principal); O99.212 Obesity complicating pregnancy, second trimester; O26.892 Other specified pregnancy related conditions, second trimester; K51.90 Ulcerative colitis, unspecified, without complications; Z3A.19 19 weeks gestation of pregnancy | CPT/HCPCS: 76811 ==

== ENCOUNTER 2025-03-27 13:31 | Outpatient (CLI) | payer BC, SELFPAY | END 2025-03-27 13:32 | disposition home or self-care (01) | LOC: US 13:32 | PROVIDERS: Visit Provider Obstetrics & Gynecology | DX: Z36.2 Encounter for other antenatal screening follow-up (principal); O99.212 Obesity complicating pregnancy, second trimester; Z3A.23 23 weeks gestation of pregnancy | CPT/HCPCS: 76816 ==

== ENCOUNTER 2025-04-20 14:14 | Outpatient (CLI) | payer BC, SELFPAY ==
[2025-04-20 14:23] VITALS: PULSE 109; RESP 18; TEMP 36.6; O2SAT 100
[2025-04-20 14:36] VITALS: BP 116/64; PULSE 103
--- NOTE | 2025-04-20 14:51 | P.OBLDTN_ITS ---
OB - Triage/Final Diagnosis Visit Information Time Seen by Provider: 14:52 Date Seen: 04/20/25 Date of evaluation: 04/20/25 Narrative: The patient is a 29 year old 2 para 1 at 27 weeks gestation by US, who presents with bleeding. No contractions or change in pressure. [place] <48 hours ago. No GI or urinary symptoms. Reason for evaluation: other (bleeding) Comments/Additional reasons for admission: Cervical exam shows small amount of brown blood, no obvious source. Evaluation Cervical dilation (cm): 0 Cervical effacement (%): 0 Laboratory results: pending wet prep Vital signs: Vital Signs - 24 hr 04/20/25 14:23 04/20/25 14:23 04/20/25 14:36 Temperature 97.9 F Pulse Rate Blood Pressure 116/64 Pulse Oximetry 100 04/20/25 14:36 Temperature Pulse Rate 103 H Blood Pressure Pulse Oximetry Fetus (Single) Heart Rate Baseline: 140 Hand Violin Maker Variability: Moderate (6-25) Monitor Accelerations: Present Monitor Decelerations: None Station: -4 Final Diagnosis (1) Bleeding from genital tract during : Status: Acute Total Time Spent Total Time Spent: 15 minutes
[2025-04-20 14:54] VITALS: BMI 45.8
[2025-04-20 15:00] LABS: Trichomonas No Trichomonas Seen (None Seen)
--- NOTE | 2025-04-20 15:38 | PC.OBNST ---
NST Note NST Note Start: 04/20/25 14:48 Freq: ONCE Status: Active Protocol: Document 04/20/25 15:12 SRV (Rec: 04/20/25 15:38 SRV [id number]) NST Note 2 Para (# of births) 1 EDC 07/18/25 Gestational Age In 27 Weeks & 2 Days Weeks & Days High Risk Factors High Blood Pressure - Preexisting Patient Presented Vaginal bleeding with Complaint(s) of Other Complaints Spotting Reactive Yes Appropriate for Yes Gestational Age RN Brady Diana RN Date 04/20/25 Reactive Yes Appropriate for Yes Gestational Age BUTCH Prater RN Date 04/20/25 OB NST charge Yes Complete NST Note Yes via Write Note The provider's electronic signature indicates the NST is reactive/appropriate for gestational age. *Note to provider: If an addendum is required, open the patient's chart and click on the note under the Nurse/Allied Health tab.
== END 2025-04-20 15:35 | disposition home or self-care (01) ==
LOC: OB OUT 14:14 → OB 14:17
PROVIDERS: Visit Provider Obstetrics & Gynecology
DX: O46.92 Antepartum hemorrhage, unspecified, second trimester (principal); O10.912 Unspecified pre-existing hypertension complicating pregnancy, second trimester; Z3A.27 27 weeks gestation of pregnancy
CPT/HCPCS: 59025; 87210; G0463